=== PATIENT | male | born 1940 | race Caucasian/White ===

== ENCOUNTER 2021-10-20 20:21 | Inpatient (IN) | payer BC, MEDICARE ==
[2021-10-20] MEDS ORDERED: EPINEPHrine 4 MG in DEXTROSE 5% IN WATER 250 ML IV SCH ×2 (21:00)
[2021-10-20 21:07] VITALS: BP 97/84; TEMP 97.9
[2021-10-20 21:10] LABS: INR 1.5 (<1.2); Prothrombin Time 14.7 sec (9.0-12.0)
[2021-10-20 21:11] LABS: Albumin 3.4 g/dL (3.5-5.0); Calcium 8.9 mg/dL (8.4-10.2); Magnesium 2.9 mg/dL (1.6-2.3); Total Bilirubin 0.9 mg/dL (0.2-1.3); Total Protein 6.3 g/dL (6.3-8.2)
[2021-10-20 21:13] LABS: Basophils # (A) 0.1 k/uL (0-0.2); Basophils % (A) 1 %; Eosinophils # (A) 0.1 k/uL (0-0.7); Eosinophils % (A) 0 %; HCT 48.5 % (39.0-53.0); HGB 14.1 gm/dL (13.0-17.5); Hypochromasia Marked; Lymphocytes # (A) 3.8 k/uL (1.0-4.8); Lymphocytes % (A) 20 %; MCH 31.5 pg (25.0-35.0); MCHC 29.1 g/dL (31.0-37.0); MCV 108.4 fL (80.0-100.0); Macrocytosis Moderate; Mean Platelet Volume 9.9; Monocytes # (A) 0.6 k/uL (0-1.0); Monocytes % (A) 3 %; Neutrophils # (A) 14.5 k/uL (1.3-7.7); Neutrophils % (A) 75 %; Platelet Count 135 k/uL (150-450); RBC 4.47 m/uL (4.30-5.90); RDW 13.2 % (11.5-15.5); WBC 19.3 k/uL (3.8-10.6)
--- NOTE | 2021-10-20 21:25 | XR ---
EXAMINATION TYPE: XR chest 1V portable DATE OF EXAM: 10/20/2021 9:09 PM COMPARISON:None TECHNIQUE: Frontal view of the chest. CLINICAL INDICATION:Male, 81 years old with history of cardiac arrest FINDINGS: Lungs/Pleura: Scattered hazy opacities are seen throughout the lungs most pronounced in the right. So cial opacities are also seen. No evidence for pleural effusion or pneumothorax. Pulmonary vascularity: Pulmonary vascular congestion. Heart/mediastinum: Cardiomediastinal silhouette is partially obscured due to overlying and adjacent o pacities. Musculoskeletal: No acute osseous pathology. Lines/Tubes: Endotracheal tube with distal tip to cm above the amanda IMPRESSION: 1. Endotracheal tube in appropriate position. 2. Pulmonary vascular edema consistent with provided history of cardiac arrest. Airspace disease not entirely excluded.
[2021-10-20 21:26] LABS: ABG Base Excess -17.1 mmol/L; ABG HCO3 13 mmol/L (21-25); ABG Oxygen Saturation 99.4 % (94-97); ABG PCO2 43 mmHg (35-45); ABG PO2 318 mmHg (83-108); ABG TCO2 14 mmol/L (19-24); Allen Test Performed? Yes
--- NOTE | 2021-10-20 21:26 | ED ---
General Adult HPI <Josh Merrill Sil - Last Filed: 10/21/21 01:30> - General Source: EMS Mode of arrival: EMS Limitations: no limitations <Jeff Kowalski Licha - Last Filed: 10/25/21 07:29> - General Chief complaint: Cardiac Arrest/CPR Stated complaint: Unresponsive - History of Present Illness Initial comments: Dictation was produced using [employer] dictation software. please excuse any grammatical, word or spelling errors. Chief Complaint: Patient is an 81-year-old male with alleged past medical history of COPD presents via EMS for cardiac arrest History of Present Illness: Patient is an 81-year-old male. History is obtained from EMS. According to EMS patient was initially called upon for shortness of breath. Upon initial EMS evaluation he was having respiratory distress sitting on the toilet. Patient shortly after became unresponsive. Per EMS His initial rhythm was asystole. CPR was initiated. Patient had CPR for several cycles. He had multiple rounds of CPR. There is one point where he had V. fib arrest. He was defibrillated with return of spontaneous circulation. According to EMS patient was given 2 rounds of epinephrine and 1 amiodarone. PHYSICAL EXAM: General Impression: Tended, cyanotic pale and dry, unresponsive HEENT: Sluggish to light mid-dilated pupil, dry mucous membranes, intubated Cardiovascular: Weak pulse Chest: Breath sounds with bagging Abdomen: abdomen soft, non-tender, non-distended, no organomegaly Musculoskeletal: Cyanotic pale and cool extremities distally Motor: No movement Neurological:mid dilated pupil, sluggish to light ED course: 81-year-old male presents emergency department for cardiac arrest. Patient received in trauma bay #1. He did have a very weak pulse upon initial arrival. [id number] bedside ultrasound was performed showing cardiomyopathy with very weak squeeze especially to the left ventricle. He did have a very weak pulse. Patient was further resuscitated in trauma bay #1. Patient became bradycardic into the 20s on multiple occasions and was given epinephrine pushes. Central venous catheter line was placed in the right femoral groin under ultrasound guidance. Patient started on epinephrine drip and his heart rate improved. Throughout his whole initial ER stay for the first one his blood pressure was maintained at a normal level. His heart rate improved with epinephrine drip, bicarbonate and calcium. EKG was obtained showing right bundle branch block with ST elevations in the septal and lateral precordial leads. EKG was sent to Dr. Mello who reviewed the image . Dr. Mello reports the patient is too unstable for cardiac catheterization at this time. He does not recommend Cardec catheterization at this time. More history was obtained from children who arrive at the bedside. Patient's daughter and 2 sons are present at the bedside. There is one other son who is not with them. Patient has other children that he does not speak to. Daughter provides majority of the history of present illness. she states that she received a call from the patient earlier this evening that he was having d ifficulties with his breathing. She arrived at his house with hospital EMS. He was talking however was experiencing respiratory distress. He was significantly nauseated. They tried to get him to the ambulance when he stood up and collapsed which is when patient arrested. Daughter reports that patient does not take any anticoagulation medications. She reports that he does not have any history of cardiac disease. It is explained that patient sometimes is noncompliant with his medications. He has not complained to family about any chest pain at any point. At this point family would like to remain full code until more information comes available and will determine CODE STATUS. The patient's laboratory evaluation came back. He has a leukocytosis of 19.3. Hemoglobin normal. Platelets 135. Coag panel shows INR 1.5. Patient has a pH of 7.08 with a bicarb of 13 and a pCO2 of 43. Clinical presentation consistent with metabolic acidosis. Patient's lactic is 13.0. Patient does have a gap acidosis potassium 6.0. Creatinine 1.67. Troponin is 36.7 with a BNP of 13,300. Labs were discussed with Dr. Mello who is aware. He does not have any added recommendations. He requests that patient be started on heparin given rectal aspirin. He will continue to monitor patient. Repeat ABG shows patient's 7.2 pO2 139 on 60% FiO2 bicarb of 14 CO2 of 15. Patient's blood pressure began to decrease. Patient was started on legal fed. EKG interpretation: No old EKG for comparison. 2057 Ventricular rate 73, sinus rhythm, wide QRS no Q waves, right bundle branch block, ST elevations in septal and lateral precordial leads without reciprocal changes. QTC of 605. EKG is concerning for infarction. Repeat EKG was performed at 2236. Showing similar findings. Patient had a cardiac event at approximately 11:30 PM. CPR was initiated. Return of spontaneous circulations are achieved. Discussion was held with family by nurse from [facility] team. Discussed with family that patient has very serious condition and has very poor prognosis concerning that he is on mult iple vasoactive medications is advanced in age and has had 2 episodes of cardiac arrest. Patient CODE STATUS changed to DO NOT RESUSCITATE. (Jeff Kowalski) - Related Data Home Medications Medication Instructions Recorded Confirmed ALPRAZolam [Xanax] 0.5 mg PO TID PRN 10/20/21 10/20/21 Acetaminophen with Codeine 1 tab PO Q4H PRN 10/20/21 10/20/21 [Tylenol w/Codeine #4 Tablet] Albuterol Sulfate [Albuterol 2 puff PO RT-Q4H PRN 10/20/21 10/20/21 Sulfate Hfa] Budesonide/Formoterol Fumarate 2 puff INHALATION RT-BID 10/20/21 10/20/21 [Symbicort 160-4.5 Mcg Inhaler] Furosemide [Lasix] 40 mg PO DAILY 10/20/21 10/20/21 Potassium Chloride ER [K-Dur 10] 10 meq PO DAILY 10/20/21 10/20/21 Propranolol [Inderal] 60 mg PO DAILY 10/20/21 10/20/21 glipiZIDE [Glucotrol] 5 mg PO AC-BRKFST 10/20/21 10/20/21 Allergies Allergy/AdvReac Type Severity Reaction Status Date / Time Unable to Assess Allergy Verified 10/20/21 23:51 Review of Systems ROS Other: All systems not noted in ROS Statement are negative. <Josh Merrill - Last Filed: 10/21/21 01:30> ROS Other: All systems not noted in ROS Statement are negative. <Jeff Kowalski - Last Filed: 10/25/21 07:29> ROS Statement: Those systems with pertinent positive or pertinent negative responses have been documented in the HPI. Past Medical History Past Medical History: COPD History of Any Multi-Drug Resistant Organisms: Unobtainable Past Surgical History: Unable to Obtain Past Psychological History: Unable to Obtain Smoking Status: Unknown if ever smoked Past Alcohol Use History: Unable to Obtain Past Drug Use History: Unable to Obtain <Jeff Kowalski - Last Filed: 10/25/21 07:29> General Exam Limitations: altered mental status, physical limitation General appearance: obtunded, other (Patient unresponsive on) Head exam: Present: atraumatic Eye exam: Present: other (Pupils are fixed and dilated bilaterally) Respiratory exam: Present: other (No lung sounds) Cardiovascular Exam: Present: other (No heart sounds) Skin exam: Present: cyanosis, pallor, mottled <Josh Merrill - Last Filed: 10/21/21 01:30> Limitations: no limitations <Jeff Kowalski - Last Filed: 10/25/21 07:29> Course <Josh Merrill - Last Filed: 10/21/21 01:30> Vital Signs 10/20/21 10/20/21 10/20/21 20:41 21:01 21:42 Temperature 97.9 F Pulse Rate 59 L 51 L 67 Respiratory 22 12 24 Rate Blood Pressure 118/50 97/84 O2 Sat by Pulse Oximetry 10/20/21 10/20/21 10/20/21 22:20 22:40 23:20 Temperature Pulse Rate 63 66 60 Respiratory 22 22 18 Rate Blood Pressure O2 Sat by Pulse 89 L Oximetry 10/20/21 10/21/21 10/21/21 23:40 00:00 00:20 Temperature Pulse Rate 94 66 62 Respiratory 18 18 18 Rate Blood Pressure O2 Sat by Pulse Oximetry - Reevaluation(s) Reevaluation #1: 10/21/21 01:32 Medical record is reviewed (Josh Merrill) Reevaluation #2: 10/21/21 01:32 Patient was seen and evaluated in the emergency department, patient is found to be in asystole Patient was without pulse Pupils were fixed and dilated Patient was made DO NOT RESUSCITATE, no code Patient pronounced 00:28 (Josh Merrill) Reevaluation #3: 10/21/21 01:33 Spoke with senior medical billing specialist, body is released (Josh Merrill) Reevaluation #4: 10/21/21 01:33 family is updated on patient's passing (Josh Merrill) Procedures - Arterial Line No standard instances Consent Obtained: emergent situation Size (Gauge): 14 Technique Used: guide wire technique Post-Procedure: line sutured into place Patient Tolerated Procedure: well Complications: none - Central Line Placement Right Femoral Consent Obtained: emergent situation Patient Placed on Monitor/Pulse Ox: Yes Prep: mask, gown, gloves Central Line Prep: Chlorhexidine scrub Ultrasound Used for Placement: Yes Central Line Lumen Inserted: triple Bloods Obtained for Lab: Yes Central Line Position: good blood return, all ports aspirated, flushed, capped, sutured in place with 3-0 nylon Dressing Applied: Tegaderm Patient Tolerated Procedure: well Complications: none <Jeff Kowalski - Last Filed: 10/25/21 07:29> Medical Decision Making - Lab Data Result diagrams: 10/20/21 21:01 10/20/21 20:59 <Josh Merrill - Last Filed: 10/21/21 01:30> - Lab Data Result diagrams: 10/20/21 21:01 10/20/21 20:59 <Jeff Kowalski - Last Filed: 10/25/21 07:29> - Medical Decision Making 81 male to the emergency room. Patient came in his urine arrest patient did pass away as a cardiopulmonary arrest 00:28 (Josh Merrill) - Lab Data Lab Results 10/20/21 10/20/21 10/20/21 Range/Units 20:59 20:59 20:59 WBC (3.8-10.6) k/uL RBC (4.30-5.90) m/uL Hgb (13.0-17.5) gm/dL Hct (39.0-53.0) % MCV (80.0-100.0) fL MCH (25.0-35.0) pg MCHC (31.0-37.0) g/dL RDW (11.5-15.5) % Plt Count (150-450) k/uL MPV Neutrophils % % Lymphocytes % % Monocytes % % Eosinophils % % Basophils % % Neutrophils # (1.3-7.7) k/uL Lymphocytes # (1.0-4.8) k/uL Monocytes # (0-1.0) k/uL Eosinophils # (0-0.7) k/uL Basophils # (0-0.2) k/uL Hypochromasia Macrocytosis PT 14.7 H (9.0-12.0) sec INR 1.5 H (<1.2) Sample Site ABG pH (7.35-7.45) ABG pCO2 (35-45) mmHg ABG pO2 (83-108) mmHg ABG HCO3 (21-25) mmol/L ABG Total CO2 (19-24) mmol/L ABG O2 Saturation (94-97) % ABG Base Excess mmol/L Lawrence Test FiO2 % Sodium 137 (137-145) mmol/L Potassium 6.0 H (3.5-5.1) mmol/L Chloride 103 (98-107) mmol/L Carbon Dioxide 13 L (22-30) mmol/L Anion Gap 21 mmol/L BUN 20 (9-20) mg/dL Creatinine 1.67 H (0.66-1.25) mg/dL Est GFR (CKD-EPI)AfAm 44 (>60 ml/min/1.73 sqM) Est GFR (CKD-EPI)NonAf 38 (>60 ml/min/1.73 sqM) Glucose 322 H (74-99) mg/dL Lactic Ac Sepsis Rflx Plasma Lactic Acid Boo (0.7-2.0) mmol/L Calcium 8.9 (8.4-10.2) mg/dL Magnesium 2.9 H (1.6-2.3) mg/dL Total Bilirubin 0.9 (0.2-1.3) mg/dL AST 351 H (17-59) U/L ALT 63 H (4-49) U/L Alkaline Phosphatase 45 (38-126) U/L Troponin I 36.700 H* (0.000-0.034) ng/mL NT-Pro-B Natriuret Pep pg/mL Total Protein 6.3 (6.3-8.2) g/dL Albumin 3.4 L (3.5-5.0) g/dL Coronavirus (PCR) (Not Detectd) 10/20/21 10/20/21 10/20/21 Range/Units 20:59 21:01 21:01 WBC 19.3 H (3.8-10.6) k/uL RBC 4.47 (4.30-5.90) m/uL Hgb 14.1 (13.0-17.5) gm/dL Hct 48.5 (39.0-53.0) % MCV 108.4 H (80.0-100.0) fL MCH 31.5 (25.0-35.0) pg MCHC 29.1 L (31.0-37.0) g/dL RDW 13.2 (11.5-15.5) % Plt Count 135 L (150-450) k/uL MPV 9.9 Neutrophils % 75 % Lymphocytes % 20 % Monocytes % 3 % Eosinophils % 0 % Basophils % 1 % Neutrophils # 14.5 H (1.3-7.7) k/uL Lymphocytes # 3.8 (1.0-4.8) k/uL Monocytes # 0.6 (0-1.0) k/uL Eosinophils # 0.1 (0-0.7) k/uL Basophils # 0.1 (0-0.2) k/uL Hypochromasia Marked Macrocytosis Moderate PT (9.0-12.0) sec INR (<1.2) Sample Site ABG pH (7.35-7.45) ABG pCO2 (35-45) mmHg ABG pO2 (83-108) mmHg ABG HCO3 (21-25) mmol/L ABG Total CO2 (19-24) mmol/L ABG O2 Saturation (94-97) % ABG Base Excess mmol/L Lawrence Test FiO2 % Sodium (137-145) mmol/L Potassium (3.5-5.1) mmol/L Chloride (98-107) mmol/L Carbon Dioxide (22-30) mmol/L Anion Gap mmol/L BUN (9-20) mg/dL Creatinine (0.66-1.25) mg/dL Est GFR (CKD-EPI)AfAm (>60 ml/min/1.73 sqM) Est GFR (CKD-EPI)NonAf (>60 ml/min/1.73 sqM) Glucose (74-99) mg/dL Lactic Ac Sepsis Rflx Plasma Lactic Acid Boo 13.0 H* (0.7-2.0) mmol/L Calcium (8.4-10.2) mg/dL Magnesium (1.6-2.3) mg/dL Total Bilirubin (0.2-1.3) mg/dL AST (17-59) U/L ALT (4-49) U/L Alkaline Phosphatase (38-126) U/L Troponin I (0.000-0.034) ng/mL NT-Pro-B Natriuret Pep 29572 pg/mL Total Protein (6.3-8.2) g/dL Albumin (3.5-5.0) g/dL Coronavirus (PCR) (Not Detectd) 10/20/21 10/20/21 10/20/21 Range/Units 21:21 21:25 21:44 WBC (3.8-10.6) k/uL RBC (4.30-5.90) m/uL Hgb (13.0-17.5) gm/dL Hct (39.0-53.0) % MCV (80.0-100.0) fL MCH (25.0-35.0) pg MCHC (31.0-37.0) g/dL RDW (11.5-15.5) % Plt Count (150-450) k/uL MPV Neutrophils % % Lymphocytes % % Monocytes % % Eosinophils % % Basophils % % Neutrophils # (1.3-7.7) k/uL Lymphocytes # (1.0-4.8) k/uL Monocytes # (0-1.0) k/uL Eosinophils # (0-0.7) k/uL Basophils # (0-0.2) k/uL Hypochromasia Macrocytosis PT (9.0-12.0) sec INR (<1.2) Sample Site A Line ABG pH 7.08 L* (7.35-7.45) ABG pCO2 43 (35-45) mmHg ABG pO2 318 H (83-108) mmHg ABG HCO3 13 L (21-25) mmol/L ABG Total CO2 14 L (19-24) mmol/L ABG O2 Saturation 99.4 H (94-97) % ABG Base Excess -17.1 mmol/L Lawrence Test Yes FiO2 100 % Sodium (137-145) mmol/L Potassium (3.5-5.1) mmol/L Chloride (98-107) mmol/L Carbon Dioxide (22-30) mmol/L Anion Gap mmol/L BUN (9-20) mg/dL Creatinine (0.66-1.25) mg/dL Est GFR (CKD-EPI)AfAm (>60 ml/min/1.73 sqM) Est GFR (CKD-EPI)NonAf (>60 ml/min/1.73 sqM) Glucose (74-99) mg/dL Lactic Ac Sepsis Rflx Y Plasma Lactic Acid Boo (0.7-2.0) mmol/L Calcium (8.4-10.2) mg/dL Magnesium (1.6-2.3) mg/dL Total Bilirubin (0.2-1.3) mg/dL AST (17-59) U/L ALT (4-49) U/L Alkaline Phosphatase (38-126) U/L Troponin I (0.000-0.034) ng/mL NT-Pro-B Natriuret Pep pg/mL Total Protein (6.3-8.2) g/dL Albumin (3.5-5.0) g/dL Coronavirus (PCR) Not Detected (Not Detectd) 10/20/21 Range/Units 22:28 WBC (3.8-10.6) k/uL RBC (4.30-5.90) m/uL Hgb (13.0-17.5) gm/dL Hct (39.0-53.0) % MCV (80.0-100.0) fL MCH (25.0-35.0) pg MCHC (31.0-37.0) g/dL RDW (11.5-15.5) % Plt Count (150-450) k/uL MPV Neutrophils % % Lymphocytes % % Monocytes % % Eosinophils % % Basophils % % Neutrophils # (1.3-7.7) k/uL Lymphocytes # (1.0-4.8) k/uL Monocytes # (0-1.0) k/uL Eosinophils # (0-0.7) k/uL Basophils # (0-0.2) k/uL Hypochromasia Macrocytosis PT (9.0-12.0) sec INR (<1.2) Sample Site A Line ABG pH 7.20 L (7.35-7.45) ABG pCO2 36 (35-45) mmHg ABG pO2 139 H (83-108) mmHg ABG HCO3 14 L (21-25) mmol/L ABG Total CO2 15 L (19-24) mmol/L ABG O2 Saturation 98.3 H (94-97) % ABG Base Excess -13.9 mmol/L Lawrence Test Yes FiO2 60 % Sodium (137-145) mmol/L Potassium (3.5-5.1) mmol/L Chloride (98-107) mmol/L Carbon Dioxide (22-30) mmol/L Anion Gap mmol/L BUN (9-20) mg/dL Creatinine (0.66-1.25) mg/dL Est GFR (CKD-EPI)AfAm (>60 ml/min/1.73 sqM) Est GFR (CKD-EPI)NonAf (>60 ml/min/1.73 sqM) Glucose (74-99) mg/dL Lactic Ac Sepsis Rflx Plasma Lactic Acid Boo (0.7-2.0) mmol/L Calcium (8.4-10.2) mg/dL Magnesium (1.6-2.3) mg/dL Total Bilirubin (0.2-1.3) mg/dL AST (17-59) U/L ALT (4-49) U/L Alkaline Phosphatase (38-126) U/L Troponin I (0.000-0.034) ng/mL NT-Pro-B Natriuret Pep pg/mL Total Protein (6.3-8.2) g/dL Albumin (3.5-5.0) g/dL Coronavirus (PCR) (Not Detectd) Critical Care Time Critical Care Time: Yes Total Critical Care Time: 73 <Jeff Kowalski - Last Filed: 10/25/21 07:29> Disposition Is patient prescribed a controlled substance at d/c from ED?: No Preliminary Cause of : Cardiopulmonary Arrest <Josh Merrill - Last Filed: 10/21/21 01:30> <Jeff Kowalski - Last Filed: 10/25/21 07:29> Clinical Impression: Acute myocardial infarction, Acute respiratory failure, Cardiac arrest Disposition: ADMITTED IP TO THIS HOSP Condition: Critical
[2021-10-20] MEDS ORDERED: CEFEPIME 2 GM in SODIUM CHLORIDE 0.9% 100 ML IVPB STA (21:35)
[2021-10-20] MEDS ORDERED: VANCOMYCIN IV PER PHARMACY 1 EACH MISC MISCELLANE PRN (21:35)
[2021-10-20] MEDS ORDERED: ASPIRIN 300 MG SUPP RECTAL STA (21:47)
[2021-10-20 21:48] LABS: ABG PH 7.08 (7.35-7.45)
[2021-10-20] MEDS ORDERED: SODIUM CHLORIDE 0.9% 1,000 ML IV STA (22:11)
[2021-10-20] MEDS ORDERED: VANCOMYCIN 1,750 MG in SODIUM CHLORIDE 0.9% 500 ML 500 ML IVPB ONE (22:30)
[2021-10-20 22:32] LABS: ABG Base Excess -13.9 mmol/L; ABG HCO3 14 mmol/L (21-25); ABG Oxygen Saturation 98.3 % (94-97); ABG PCO2 36 mmHg (35-45); ABG PO2 139 mmHg (83-108); ABG TCO2 15 mmol/L (19-24); Allen Test Performed? Yes
[2021-10-20] MEDS ORDERED: NOREPINEPHRINE 32 MG in SODIUM CHLORIDE 0.9% 218 ML IV ONE (23:00)
[2021-10-20] MEDS ORDERED: DEXTROSE 5% IN WATER 1,000 ML with SODIUM BICARB (1 MEQ/ML) 150 ML IV SCH (23:00)
[2021-10-20] MEDS ORDERED: NALOXONE 0.4 MG/ML 1 ML VIAL IV PRN (23:07)
[2021-10-20] MEDS ORDERED: ACETAMINOPHEN SUPPOSITORY 650 MG SUPP RECTAL PRN (23:07)
[2021-10-20] MEDS ORDERED: SODIUM CHLORIDE 0.9% 1,000 ML IV SCH (23:15)
[2021-10-20] MEDS ORDERED: EPINEPHrine 10 ML SYRINGE (0.1 MG/ML) ONE (23:31)
[2021-10-20] MEDS ORDERED: SODIUM BICARB 8.4% 50 ML SYR (1 MEQ/ML) ONE (23:31)
[2021-10-20] MEDS ORDERED: ATROPINE SULFATE 0.1 MG/ML 10ML SYRINGE ONE (23:31)
[2021-10-20] MEDS ORDERED: CALCIUM CHLORIDE 100 MG/ML 10 ML SYRINGE ONE (23:31)
--- NOTE | 2021-10-20 23:36 | CT ---
EXAMINATION TYPE: CT angio chest DATE OF EXAM: 10/20/2021 COMPARISON: None HISTORY: AMS CT DLP: 520.20 mGycm Automated exposure control for dose reduction was used. CONTRAST: Performed with IV Contrast, patient injected with 80 mL of Isovue 370. Images obtained from the thoracic inlet to the diaphragm without IV contrast. There are Three-D postp rocessed images. There is some airspace consolidation and atelectasis right lower lobe. There is elevated right diaphr agm. Heart size is normal. There is no pericardial effusion. There is some mild atelectasis left lung base with interstitial infiltrate. There is no evidence of filling defect in the pulmonary arteries. There is no mediastinal adenopathy. Thoracic aorta is atheromatous. There is some spurring in the thoracic spine. There is no compression fracture. IMPRESSION: No evidence of pulmonary embolism. Right lower lobe pneumonia and atelectasis.
[2021-10-21 01:07] VITALS: PULSE 62; RESP 18
--- NOTE | 2021-10-21 01:46 | P.HPIM ---
History of Present Illness H&P Date: 10/21/21 The patient is an 81 yo M with a PMH of COPD who was brought into the emergency room for cardiac arrest. History was obtained from the ED physician and the patient's chart. Notified of the admission at 224. The patient however initially seen following activation of [employer] at 2331 which was being run by the ED physician at the scene. EMS was reportedly activated due to complaints of shortness of breath by the patient. He was initially found to be in respiratory distress while sitting on his toilet and then became unresponsive with asystole on the monitor for which 2 cycles of CPR were performed and the patient then was noted to be in V. fib arrest for which a defibrillation was performed with subsequent ROSC. The EMS reportedly gave the patient IV push epinephrine 2 and amiodarone 1. Upon my arrival at the scene, the patient was undergoing CPR with ACLS protocol with subsequent ROSC at 2337 following sodium bicarb IV push 2. As per the ED physician, upon the patient's arrival at the hospital, a bedside ultrasound was performed showing cardiomyopathy with diminished cardiac function. Central line as well as an arterial line were placed. Patient was noted to be bradycardic and hypotensive for which an epinephrine infusion as well as a norepinephrine infusion were initiated with subsequent improvement. As per the chart, the patient had not endorsed chest discomfort to family but had complained of shortness of breath throughout the day. EKG had revealed a widened QRS at [address] elevations noted in several precordial leads. The ED physician noted that the case was discussed in detail with the senior microsoft net developer almond sorter Dr. Mello and the EKG was sent to him for review, following which Heparin infusion and recal aspirin were administered with no plans for taking the patient to the cath-lab due to instability. Laboratory evaluation had revealed leukocytosis of 19.3, MCV 108.4, pH 7.08, HCO3 13, lactic acid 13.0, and creatinine 1.6, with troponin 36.7. Chest CTA had revealed a right lower lobe pneumonia with atelectasis. The patient was intubated at the time of evaluation and thereby no history could be obtained. The case was discussed with the patient's family and they subsequently decided to make him a no code. The patient at 0028 and the family was notified. Review of systems: Unable to obtain Physical examination (from initial evaluation at 2337): General: Pale intubated male, appears ill, appears at stated age, overweight Derm: Bilateral upper extremity ecchymosis with skin noted, warm, dry Head: atraumatic, normocephalic, symmetric Eyes: Nonreactive dilated pupils bilaterally, anicteric sclera ENT: Nose and ears atraumatic Neck: No thyromegaly, no cervical lymphadenopathy, trachea midline, supple Mouth: no lip lesion, mucus membranes dry Cardiovascular: S1S2 reg, no murmur, no edema, capillary refill greater than 2 seconds Lungs: CTA bilateral, no rhonchi, no rales Abdominal: soft, non-distended Ext: no gross muscle atrophy, no contractures, Neuro: Unresponsive to noxious stimuli Psych: Unable to assess Assessment/plan Myocardial infarction Cardiac arrest Lactic acidosis Leukocytosis Hyperkalemia Type 2 DM HTN HLD Elevated INR Past Medical History Past Medical History: COPD Additional Past Medical History / Comment(s): BPH, leg edema, History of Any Multi-Drug Resistant Organisms: Unobtainable Past Surgical History: Unable to Obtain Additional Past Surgical History / Comment(s): prostatectomy Past Psychological History: Unable to Obtain Smoking Status: Unknown if ever smoked Past Alcohol Use History: Unable to Obtain Past Drug Use History: Unable to Obtain Medications and Allergies Home Medications Medication Instructions Recorded Confirmed Type ALPRAZolam [Xanax] 0.5 mg PO TID PRN 10/20/21 10/20/21 History Acetaminophen with Codeine 1 tab PO Q4H PRN 10/20/21 10/20/21 History [Tylenol w/Codeine #4 Tablet] Albuterol Sulfate [Albuterol 2 puff PO RT-Q4H PRN 10/20/21 10/20/21 History Sulfate Hfa] Budesonide/Formoterol Fumarate 2 puff INHALATION RT-BID 10/20/21 10/20/21 History [Symbicort 160-4.5 Mcg Inhaler] Furosemide [Lasix] 40 mg PO DAILY 10/20/21 10/20/21 History Potassium Chloride ER [K-Dur 10] 10 meq PO DAILY 10/20/21 10/20/21 History Propranolol [Inderal] 60 mg PO DAILY 10/20/21 10/20/21 History glipiZIDE [Glucotrol] 5 mg PO AC-BRKFST 10/20/21 10/20/21 History Allergies Allergy/AdvReac Type Severity Reaction Status Date / Time Unable to Assess Allergy Verified 10/20/21 23:51 Physical Exam Vitals: Vital Signs Temp Pulse Resp BP Pulse Ox 10/21/21 00:20 62 18 10/21/21 00:00 66 18 10/20/21 23:40 94 18 10/20/21 23:20 60 18 10/20/21 22:40 66 22 10/20/21 22:20 63 22 89 L 10/20/21 21:42 67 24 10/20/21 21:01 97.9 F 51 L 12 97/84 10/20/21 20:41 59 L 22 118/50 Intake and Output 10/20/21 10/20/21 10/21/21 14:59 22:59 06:59 Intake Total 59.576 Balance 59.576 Intake: Intake, IV Titration 59.576 Amount EPINEPHrine 4 mg In 42.590 Dextrose 5% in Water 250 ml @ As Directed IV .Q0M [facility] Rx#:[id number] Norepinephrine 32 mg In 16.986 Sodium Chloride 0.9% 218 ml @ 0.05 MCG/KG/MIN 1. 956 mls/hr IV .Q24H [facility] Rx#:[id number] Other: Weight 83.461 kg ABP, PAP, CO, CI - Last 8 Hours Arterial Blood Pressure 113/44 Arterial Blood Pressure 92/41 Arterial Blood Pressure 149/67 Arterial Blood Pressure 78/37 Arterial Blood Pressure 87/45 Arterial Blood Pressure 88/46 Arterial Blood Pressure 99/51 Results CBC & Chem 7: 10/20/21 21:01 10/20/21 20:59 Labs: Abnormal Lab Results - Last 24 Hours (Table) 10/20/21 10/20/21 10/20/21 Range/Units 20:59 20:59 20:59 WBC (3.8-10.6) k/uL MCV (80.0-100.0) fL MCHC (31.0-37.0) g/dL Plt Count (150-450) k/uL Neutrophils # (1.3-7.7) k/uL PT 14.7 H (9.0-12.0) sec INR 1.5 H (<1.2) ABG pH (7.35-7.45) ABG pO2 (83-108) mmHg ABG HCO3 (21-25) mmol/L ABG Total CO2 (19-24) mmol/L ABG O2 Saturation (94-97) % Potassium 6.0 H (3.5-5.1) mmol/L Carbon Dioxide 13 L (22-30) mmol/L Creatinine 1.67 H (0.66-1.25) mg/dL Glucose 322 H (74-99) mg/dL Plasma Lactic Acid Boo (0.7-2.0) mmol/L Magnesium 2.9 H (1.6-2.3) mg/dL AST 351 H (17-59) U/L ALT 63 H (4-49) U/L Troponin I 36.700 H* (0.000-0.034) ng/mL Albumin 3.4 L (3.5-5.0) g/dL 10/20/21 10/20/21 10/20/21 Range/Units 21:01 21:01 21:21 WBC 19.3 H (3.8-10.6) k/uL MCV 108.4 H (80.0-100.0) fL MCHC 29.1 L (31.0-37.0) g/dL Plt Count 135 L (150-450) k/uL Neutrophils # 14.5 H (1.3-7.7) k/uL PT (9.0-12.0) sec INR (<1.2) ABG pH 7.08 L* (7.35-7.45) ABG pO2 318 H (83-108) mmHg ABG HCO3 13 L (21-25) mmol/L ABG Total CO2 14 L (19-24) mmol/L ABG O2 Saturation 99.4 H (94-97) % Potassium (3.5-5.1) mmol/L Carbon Dioxide (22-30) mmol/L Creatinine (0.66-1.25) mg/dL Glucose (74-99) mg/dL Plasma Lactic Acid Boo 13.0 H* (0.7-2.0) mmol/L Magnesium (1.6-2.3) mg/dL AST (17-59) U/L ALT (4-49) U/L Troponin I (0.000-0.034) ng/mL Albumin (3.5-5.0) g/dL 10/20/21 10/20/21 Range/Units 22:28 23:56 WBC (3.8-10.6) k/uL MCV (80.0-100.0) fL MCHC (31.0-37.0) g/dL Plt Count (150-450) k/uL Neutrophils # (1.3-7.7) k/uL PT (9.0-12.0) sec INR (<1.2) ABG pH 7.20 L (7.35-7.45) ABG pO2 139 H (83-108) mmHg ABG HCO3 14 L (21-25) mmol/L ABG Total CO2 15 L (19-24) mmol/L ABG O2 Saturation 98.3 H (94-97) % Potassium (3.5-5.1) mmol/L Carbon Dioxide (22-30) mmol/L Creatinine (0.66-1.25) mg/dL Glucose (74-99) mg/dL Plasma Lactic Acid Boo 11.6 H* (0.7-2.0) mmol/L Magnesium (1.6-2.3) mg/dL AST (17-59) U/L ALT (4-49) U/L Troponin I (0.000-0.034) ng/mL Albumin (3.5-5.0) g/dL
[2021-10-21] MEDS ORDERED: ARTIFICIAL TEARS OINTMENT 3.5 GM TUBE BOTH EYES PRN (08:00)
[2021-10-21] MEDS ORDERED: PANTOPRAZOLE 40 MG/10 ML VIAL IV SCH (09:00)
== END 2021-10-21 00:53 | disposition expired ==
LOC: EC 20:21 → 2SICU 23:07
PROVIDERS: ADMIT Internal Medicine; ATTEND Internal Medicine
PROC: 4A133B1 Monitoring of Arterial Pressure, Peripheral, Percutaneous Approach (ICD-10-PCS; principal; 2021-10-20)
PROC: 4A133J1 Monitoring of Arterial Pulse, Peripheral, Percutaneous Approach (ICD-10-PCS; 2021-10-20)
PROC: 06HN33Z Insertion of Infusion Device into Left Femoral Vein, Percutaneous Approach (ICD-10-PCS; 2021-10-20)
PROC: B54CZZA Ultrasonography of Left Lower Extremity Veins, Guidance (ICD-10-PCS; 2021-10-20)
PROC: 5A12012 Performance of Cardiac Output, Single, Manual (ICD-10-PCS; 2021-10-20)
PROC: 0BH17EZ Insertion of Endotracheal Airway into Trachea, Via Natural or Artificial Opening (ICD-10-PCS; 2021-10-20)
DX: I21.9 Acute myocardial infarction, unspecified (principal); J96.00 Acute respiratory failure, unspecified whether with hypoxia or hypercapnia; J18.9 Pneumonia, unspecified organism; J98.11 Atelectasis; E87.2 Acidosis; J44.0 Chronic obstructive pulmonary disease with (acute) lower respiratory infection; I42.9 Cardiomyopathy, unspecified; Z66 Do not resuscitate; Z51.5 Encounter for palliative care; Z20.822 Contact with and (suspected) exposure to COVID-19; I49.01 Ventricular fibrillation; I46.2 Cardiac arrest due to underlying cardiac condition; E87.5 Hyperkalemia; R00.1 Bradycardia, unspecified; I95.9 Hypotension, unspecified; H57.04 Mydriasis; I45.10 Unspecified right bundle-branch block; N40.0 Benign prostatic hyperplasia without lower urinary tract symptoms; Z79.51 Long term (current) use of inhaled steroids; Z79.84 Long term (current) use of oral hypoglycemic drugs; Z79.899 Other long term (current) drug therapy; Z91.14 Patient's other noncompliance with medication regimen
CPT/HCPCS: 36415; 36556; 36620; 71045; 71275; 80053; 82805; 83605; 83735; 83880; 84484; 85025; 85610; 87040; 87070; 87205; 87635; 93005; 94002; 94003; 99291